=== PATIENT | female | born 1980 | race Caucasian/White ===

== ENCOUNTER → 2022-02-06 10:41 | Outpatient (CLI) | payer OTHER, SELFPAY ==
--- NOTE | 2022-02-06 | DI.MG.S_ITS ---
BILATERAL DIGITAL SCREENING MAMMOGRAM 3D/2D WITH CAD: 02/06/2022 CLINICAL: Baseline exam Routine screening. No prior exams were available for comparison. The tissue of both breasts is heterogeneously dense. This may lower the sensitivity of mammography. Current study was also evaluated with a Computer Aided Detection (CAD) system. There is possible architectural distortion in the right breast central to the nipple middle depth. No other significant masses, calcifications, or other findings are seen in either breast. IMPRESSION: INCOMPLETE: NEEDS ADDITIONAL IMAGING EVALUATION The possible architectural distortion in the right breast is indeterminate. Additional views with possible ultrasound are recommended. Based on the Tyrer Cuzick model (a risk assessment model) the patient's lifetime risk is 9.3% and her 10 year risk is 1.4%. According to the ACR, ACS, and NCCN guidelines, an annual breast MRI exam along with mammogram is recommended if the patient's lifetime risk is 20% or greater. This exam was interpreted at Station ID: [id number]. NOTE: For mammograms, a report in lay terms will be sent to the patient. Approximately 15% of breast malignancies will not be visualized mammographically. In the management of a palpable breast mass, a negative mammogram must not discourage biopsy of a clinically suspicious lesion. Electronically Signed By: Elenita still/tanner:02/06/2022 13:25:30 letter sent: Followup Recommended ACR BI-RADS Category 0: Incomplete 3340F
--- NOTE | 2022-02-06 10:43 | DI.US.S_ITS ---
PROCEDURE: US PELVIC COMPLETE INDICATIONS: Breakthrough bleeding on oral contraceptives TECHNIQUE: Real-time scanning was performed of the pelvic organs, with image documentation. Additional endovaginal scanning was necessary due to incomplete visualization of the adnexal and endometrial structures by transabdominal scanning. COMPARISON: None. FINDINGS: The uterine body measures 5.0 x 5.1 x 10.4 cm. The endometrium has a normal trilaminar appearance measuring 5 mm in combined thickness. No discrete uterine mass. Diffusely heterogenous uterine echotexture. Left ovary not visualized. Right ovary normal measuring 1.0 x 1.5 x 1.9 cm. Right ovarian or adnexal mass. Normal Doppler blood flow in the right ovary. IMPRESSION: Mildly enlarged uterus with diffusely heterogenous uterine echotexture may represent adenomyosis. No discrete uterine mass. We strive to produce accurate, complete, and clear reports of imaging services. To assist us in improving patient care, this report was composed using standard report templates and voice recognition software. Therefore, it may contain abnormal punctuation, insertions and/or omissions. Occasional wrong-word or sound-alike substitutions may occur. Though we review the report and make efforts to correct it, we do recommend that the report be read carefully in proper context to recognize any text inaccuracies. Dictated by: Oliverio Strange M.D. on 02/06/2022 at 13:33 Approved by: Oliverio Strange M.D. on 02/06/2022 at 13:36
== END ==
PROVIDERS: Referring Provider Obstetrics & Gynecology; Visit Provider Obstetrics & Gynecology
DX: N92.1 Excessive and frequent menstruation with irregular cycle (principal); Z12.31 Encounter for screening mammogram for malignant neoplasm of breast; N85.2 Hypertrophy of uterus
CPT/HCPCS: 76830; 76856; 77063; 77067

== ENCOUNTER → 2022-04-03 09:38 | Outpatient (CLI) | payer OTHER, SELFPAY ==
--- NOTE | 2022-04-03 09:40 | DI.MG.S_ITS ---
UNILATERAL RIGHT DIGITAL DIAGNOSTIC MAMMOGRAM 3D/2D: 04/03/2022 CLINICAL: Additional evaluation requested from prior study. Comparison is made to exam dated: 02/06/2022 mammogram - [facility]. The right breast is heterogeneously dense, which may obscure small masses (category c / 51-75% glandular tissue). No significant masses, calcifications, or other findings are seen in the breast. IMPRESSION: INCOMPLETE: NEEDS ADDITIONAL IMAGING EVALUATION There is no abnormality seen in the right breast to correspond with the mammography finding which is likely normal fibroglandular tissue. Ultrasound report to follow. Based on the Tyrer Cuzick model (a risk assessment model) the patient's lifetime risk is 9.3% and her 10 year risk is 1.4%. According to the ACR, ACS, and NCCN guidelines, an annual breast MRI exam along with mammogram is recommended if the patient's lifetime risk is 20% or greater. This exam was interpreted at Station ID: [id number]. NOTE: For mammograms, a report in lay terms will be sent to the patient. Approximately 15% of breast malignancies will not be visualized mammographically. In the management of a palpable breast mass, a negative mammogram must not discourage biopsy of a clinically suspicious lesion. Electronically Signed By: Juwan Obando M.D. lc/:04/03/2022 11:04:50 ACR BI-RADS Category 0: Incomplete 3340F
--- NOTE | 2022-04-03 09:40 | DI.US.S_ITS ---
ULTRASOUND OF RIGHT BREAST: 04/03/2022 CLINICAL: Patient returns today to evaluate a focal asymmetry in the right breast. Comparison is made to exams dated: 04/03/2022 mammogram and 02/06/2022 mammogram - [facility]. Color flow and real-time ultrasound of the right breast were performed. White scale images of the real-time examination were reviewed. No significant abnormalities were seen sonographically in the right breast. IMPRESSION: NEGATIVE There is no sonographic evidence of malignancy. There is no abnormality seen in the right breast to correspond with the mammography finding at 8 o'clock which is consistent with normal fibroglandular tissue. A 1 year screening mammogram is recommended. This exam was interpreted at Station ID: [id number]. Electronically Signed By: Juwan Obando M.D. lc/:04/03/2022 11:15:40 letter sent: Normal Exam Ultrasound BI-RADS: 1 Negative
== END ==
PROVIDERS: PCP Obstetrics & Gynecology; Referring Provider Obstetrics & Gynecology; Visit Provider Obstetrics & Gynecology
DX: R92.8 Other abnormal and inconclusive findings on diagnostic imaging of breast (principal)
CPT/HCPCS: 76642; 77065; G0279

== ENCOUNTER → 2022-06-10 14:37 | Outpatient (CLI) | payer OTHER, SELFPAY ==
[2022-06-10 16:54] LABS: COVID19 -Nasal RAPID Negative (Negative)
== END ==
PROVIDERS: Visit Provider Obstetrics & Gynecology
DX: Z01.812 Encounter for preprocedural laboratory examination (principal); Z20.822 Contact with and (suspected) exposure to COVID-19
CPT/HCPCS: 87635

== ENCOUNTER 2022-06-11 12:22 | Day surgery (SDC) | payer OTHER, SELFPAY ==
[2022-06-08 14:47] VITALS: BMI 32.8
[2022-06-11] VITALS (16 sets, daily range): BP systolic 93–139; BP diastolic 49–83; PULSE 61–89; RESP 8–18; TEMP 35.8–37.2; O2SAT 98–100; BMI 32.8
--- NOTE | 2022-06-11 | PATH_ITS ---
[facility] Accession Number: [id number] . 01 Material submitted: . uterus - UTERUS AND BILATERAL FALLOPIAN TUBES . 01 Diagnosis: Uterus and Bilateral Fallopian Tubes; Hysterectomy (With Preserved Cervix and Ovaries): Endometrium: Late proliferative/early secretory phase endometrium with breakdown changes. Negative for atypia, hyyperplasia and malignancy. Myometrium: No significant diagnostic abnormalities. Negative for adenoyosis (on dealer compliance representative sections) and leiomyomas (on dealer compliance representative sections and gross description). Benign bilateral fallopian tubes and paratubal cyst. Negative for atypia and malignancy. [facility] 06/16/2022 1519 Local . 01 Electronically signed: . Suman Sibley MD, Pathologist NPI- [id number] . 01 Gross description: . The specimen is received in formalin, labeled with the patient's name, , and uterus and bilateral fallopian tubes, and consists of a fragmented uterus (86 g, 9.4 x 9.3 x 5.2 cm in aggregate) and four detached, unoriented tubular structures consistent with fimbriated fallopian tube (3.8 x 1.3 cm, 3.8 x 0.7 cm, 3.6 x 0.7 cm, and 2.5 x 1.2 cm, respectively), with no cervix or additional adnexa identified. The serosa is shea and wrinkled with no evidence of adhesion or hemorrhage. The presumed endometrium is shea and velvety and averages 0.2 cm thick with no lesions identified. The myometrium is shea, firm, and trabecular with no nodules or lesions identified. Maximum thickness cannot be determined. The four tubular fragments are arbitrarily designated 1-4 from longest to shortest. Tube #1 has disrupted wrinkled serosa with no cystic structures identified and a fimbriated end. Sectioning reveals a disrupted irregular stellate lumen. Tube #2 has possible fragments of fimbriae and a shea wrinkled serosa with a cystic structure identified measuring up to 0.2 cm in greatest dimension, filled with clear serous fluid. Sectioning reveals an unremarkable stellate lumen. Tube #3 has possible fragments of fimbriae and shea smooth serosa with no cystic structures identified. Sectioning reveals an unremarkable stellate lumen. Tube #4 has fimbriae and shea smooth serosa with no cystic structures identified. Sectioning reveals an unremarkable stellate lumen. No lesions are identified. Dinkey Press Operator sections are submitted as follows: A1-A2: Dinkey Press Operator endometrium. A3-A4: Dinkey Press Operator serosa. A5: Dinkey Press Operator tube #1. A6: Dinkey Press Operator tube #2. A7: Dinkey Press Operator tube #3. A8: Dinkey Press Operator tube #4. ([id number]) /R 06/13/2022 [facility] Local . 01 Pathologist provided ICD-10: N92.0, R10.2 . 01 CPT . 742464 Specimen Comment: A courtesy copy of this report has been sent to [phone] Performed at: 01 [facility] [address] [place] [address], [place], [place] [id number] MD Rogelio Corona MD Phone: [phone]
[2022-06-11] MEDS: LACTATED RINGERS 1,000 ML 42 ML IV ×2 (12:34→16:35)
[2022-06-11] MEDS: SCOPOLAMINE 1 PATCH TOP (12:37)
--- NOTE | 2022-06-11 13:17 | SUR.OPER ---
Lithotomy on padded OR bed. Malo Pad Positioner under torso. Head on pillow, arms padded and tucked at sides. Legs secured in padded yellow fins stirrups.
--- NOTE | 2022-06-11 14:09 | PM.PREOP ---
Pre-operative Note COVID-19 COVID-19 status: Negative Result date/Date tested (Pos, Neg/Pending): 06/10/22 Criteria for continued procedure: Non-surgical alternatives not available or appropriate per current SOC Interval Note History & Physical reviewed/Exam performed by Physician: Yes Changes to H&P: No
[2022-06-11] MEDS: CEFAZOLIN 2 GM/100 ML PREMIX 100 ML IV (14:27)
[2022-06-11] MEDS: ACETAMINOPHEN IV 1,000 MG/100 ML VIAL 400 MG IV (14:38)
[2022-06-11] MEDS: BUPIVACAINE 0.5% W/ EPI (PF) 30 ML VIAL INJ (15:12)
[2022-06-11] MEDS: ROPIVACAINE 0.2% PF 2 MG/ML 10ML AMP 20 ML INJ (17:03)
[2022-06-11] MEDS: OXYCODONE IR 5 MG TABLET PO ×2 (17:49→18:19)
[2022-06-11] MEDS: KETOROLAC 30 MG/ML VIAL IV ×2 (17:50→23:40)
[2022-06-11] MEDS: LORazepam 2 MG/ML INJ 0.25 MG IV (17:50)
--- NOTE | 2022-06-11 18:06 | PM.GYNOP.1 ---
Operative Date/Time/Diagnoses Date of procedure: 06/11/22 Time of procedure: 14:50 Pre-op diagnosis: Menorrhagia with regular cycle Post endometrial ablation syndrome Intermenstrual bleeding Post-op diagnosis: other (Same as above, extensive abdominopelvic adhesions) Procedure & Clinicians Procedure: Procedures Operation Date: 06/11/22 13:30 Actual Procedure Side Surgeon p Laparoscopic Supracervical Hysterectomy with bilateral salpingectomy Lysis of adhesions Bilateral Isaac Davis MD Indications: Zoë is a 42-year-old A1, LMP 05/12/2022 whose menses are regular but moderately heavy with passage of clots and moderate cramping.? She apparently had a D&C at [facility] more than 5 years ago but no records are available for review.? In addition she has gradually developed increasingly severe mood swings occurring the week prior to her menses for which she has been prescribed lamotrigine and Seroquel by her psychiatrist.? Patient's has had a vasectomy.? She has used oral contraceptives in the past and did well with them.? She is a nonsmoker who quit smoking just last year.? Warehouse And Receiving Supervisor review of systems is notable only for deep dyspareunia which is positional and does not seem to be aggravated or exacerbated by menses for pre-menses.? These symptoms have been present since delivery or her second child by .? The patient was initiated on a trial of continuous oral contraceptives which unfortunately did not improve her symptoms in any respect and the patient wishes to pursue other options for treatment.? After extensive discussion regarding options, the patient has opted to proceed with a total laparoscopic hysterectomy with bilateral salpingectomy and she presents for her scheduled surgery. Patient also counseled that she may need to have a laparoscopic supra-cervical hysterectomy if scarring from her previous caesareans or other technical issues make TLH impossible. Surgeon: Isaac Davis Plant Culture Manager: Ainsley Middleton Anesthesia Type: General Operative Notes Findings: Extensive omental adhesions involving the infra-umbilical anterior abdominal wall extending from immediately caudad from the umbilicus all the way down to the anterior cul-de-sac. These were lysed during the course of the procedure. The uterus is upper limits of normal size and globoid in shape. The uterus itself is boggy in consistency. The left fallopian tube is densely adherent to the lateral sidewall on the left. The right fallopian tube appears normal. Both ovaries also appeared normal with the left involved with some filmy adhesions involving the sigmoid colon. The anterior cul-de-sac is largely obliterated with scar tissue particularly on the left side of cul-de-sac. The posterior cul-de-sac is unremarkable. The upper abdomen is normal to laparoscopic visualization. Closure Type: primary Specimen(s): left tube, right tube and uterus Applied: catheter Estimated blood loss (mL): 150 Blood products transfused: none Procedure in detail: With the patient under satisfactory general anesthesia in the modified dorsal lithotomy position, the perineum, vagina, and abdomen were prepped and draped in the usual manner for TLH. A pre-surgical safety time-out was then taken in accordance with [facility] OR protocols. A bivalve speculum was then inserted in the vagina and the anterior lip of the cervix grasped with single-tooth tenaculum. A VC are uterine manipulator with a medium cup was then placed after dilation of the endocervical canal. Hernández catheter was also inserted in bladder. The umbilicus was then infiltrated with 0.5% Marcaine with epinephrine and a vertical 1 cm incision was made of the inferior aspect of the umbilicus. A Veress needle was then used to insufflate the abdomen with carbon dioxide and a 5 mm trocar and sleeve was placed through the umbilical incision. Proper placement of the port inside the abdominal cavity was confirmed with the laparoscoped. A 2nd and 3rd 5 mm port were then placed in the left and right mid quadrants using a similar technique. Using a 3 puncture technique the abdomen and pelvis were visualized with the findings as noted above. A PowerSeal bipolar device was then used to coagulate and divide all the adhesions involving the omentum to the anterior abdominal wall. At the completion of the lysis process, all omental adhesions had been freed from the anterior abdominal wall. The left fallopian tube was then mobilized with a grasping forceps and using the PowerSeal bipolar device, the fimbria ovarica was then coagulated and divided with the dissection carried across the sidewall to the mesosalpinx and then to the cornua where the fallopian tube was amputated. The left fallopian tube was then passed through 1 of the 5 mm ports and submitted with the aggregate specimen the conclusion case. The PowerSeal bipolar device was then used to coagulate and divide the utero-ovarian ligament on the left. There was no visible round ligament on the left as it was obliterated by scar tissue and prior sections. The dissection was carried down the lateral aspect of the uterus on the left side with the PowerSeal bipolar device immediately adjacent to the lateral aspect of the uterus on that side. Once the level of the vesicouterine reflection had been reached, a bladder flap was attempted using the PowerSeal bipolar device and dense scar tissue was encountered. The uterine blood vessels on the left side were then secured with the PowerSeal bipolar device and attention was turned to the right side. The right fallopian tube was then grasped with the distal tube coagulated and divided to from the ovary on the right and the dissection was carried across the mesosalpinx with the PowerSeal bipolar device to the level of the cornua at which point the tube was amputated. The right tube was then passed through 1 of the 5 mm ports and submitted as part of the aggregate specimen completion procedure. The dissection on the right side was then carried down the lateral aspect of the uterus to the level of the uterovesical reflection and the bladder flap was initiated from the right side and clear space was created so as to be able to dissect over toward the midline and connect with the bladder flap incision started from the left side. Bladder could not be advanced are safely from cervical stump. The uterine vessels on the left were then coagulated and divided with the PowerSeal bipolar device and the uterine fundus was seen to kvng. Because of the inability to separate the bladder safely from the cervical stump, the decision was made to proceed with supracervical hysterectomy. The VCare uterine manipulator was removed. A Tammy loop was then introduced into the abdominal cavity and the corpus amputated at the level of the uppermost endocervical canal. The cervical stump was hemostatic and monopolar current was used to coagulate the endocervical canal and any raw edge of the cervical stump was visible. A 5 cm transverse incision was then made along the line of her old scar and through it, a 12 mm trocar and sleeve were placed. An Endo-Catch device was then used to retrieve the uterine corpus and it was brought out through the abdominal wall for morcellation using an Don retractor placed within the Endo-Catch bag. The mini lap fascia was then closed with 0 Vicryl in a running stitch and the abdomen was reinsufflated for inspection. There was no evidence of any bleeding in the pelvis and both ureters were seen to be freely peristalsing. At that point, 20 cc of ropivacaine was placed in the pelvis for additional analgesia. The pneumoperitoneum was then vented and the 4 incisions were closed with 4-0 Monocryl inverted interrupted sutures. Appropriate dressings were then applied and the patient was awakened from anesthesia. She was then transferred to the PACU for a period of observation and recovery after having tolerated the procedure well. Complications: none Post-operative Condition: stable Disposition: PACU Plan for aftercare: Routine postoperative care.
[2022-06-11] MEDS: LACTATED RINGERS 1,000 ML 100 ML IV (18:44)
--- NOTE | 2022-06-11 19:06 | PC.NURSE ---
Admit note: Patient admitted to room 220 from PACU. Awake, alert, and pleasantly cooperative. IVF and SCDs initiated on arrival. VSS and afebrile. 100% O2 sat on RA. Lower abdomen incision dressings x 4, CDI. Hernández catheter draining clear, yellow urine to gravity. No drainage to peripad. Oriented to room, environment, and plan of care. Spouse Shaq at bedside providing supportive care. Call light within reach.
[2022-06-11] MEDS: QUETIAPINE 100 MG TABLET PO (21:05)
[2022-06-12] MEDS: ACETAMINOPHEN 325 MG TABLET 650 MG PO ×2 (03:33→10:19)
[2022-06-12 03:50] VITALS: BP 122/79; PULSE 74; RESP 18; TEMP 36.8; O2SAT 98
[2022-06-12] MEDS: LACTATED RINGERS 1,000 ML 100 ML IV (04:51)
[2022-06-12 05:22] LABS: Add Manual Diff / Slide Review NO; Basophils Absolute Auto 0 /uL (0-100); Basophils Percent Auto 0.1 % (0-2); Eosinophils Absolute Auto 0 /uL (0-450); Hemoglobin 11.5 g/dL (12.0-16.0); Lymphocytes Absolute Auto 700 /uL (1100-4500); Lymphocytes Percent Auto 6.4 % (25-40); Mean Corpuscular HGB Conc 34.8 % (30-36); Monocytes Absolute Auto 500 /uL (0-900); Monocytes Percent Auto 4.4 % (3-14); Neutrophils Absolute Auto 9300 /uL (1500-7000); Neutrophils Percent Auto 89.1 % (50-75); Platelet Count 224 X10^3/uL (150-400); Red Blood Cell Count 3.71 X10^6/uL (4.0-5.2); Red Cell Distribution Width 12.3 % (11.6-14.8); White Blood Cell Count 10.5 X10^3/uL (4.5-11.0)
[2022-06-12] MEDS: KETOROLAC 30 MG/ML VIAL IV ×2 (05:45→11:00)
[2022-06-12] MEDS: HYDROMORPHONE 4 MG TABLET PO (07:40)
[2022-06-12 07:50] VITALS: BP 125/72; PULSE 64; RESP 16; TEMP 36.4; O2SAT 99
--- NOTE | 2022-06-12 07:51 | PC.NURSE ---
Day shift: Post Hernández Pt has voided twice. Fist was unmeasured. Second void w/ 300mls and post void bladder scan shows 25mls at this time (0750).
--- NOTE | 2022-06-12 09:28 | P.DS_ITS ---
History of Present Illness History of Present Illness Date Patient Seen: 06/12/22 Time Patient Seen: 09:30 Chief complaint: Menorrhagia, Post-endometrial ablation syndrome Narrative: Zoë is a 42-year-old A1, LMP 05/12/2022 whose menses are regular but moderately heavy with passage of clots and moderate cramping.? She apparently had a D&C at [facility] more than 5 years ago but no records are available for review.? In addition she has gradually developed increasingly severe mood swings occurring the week prior to her menses for which she has been prescribed lamotrigine and Seroquel by her psychiatrist.? Patient's has had a vasectomy.? She has used oral contraceptives in the past and did well with them.? She is a nonsmoker who quit smoking just last year.? Rail Car Operator review of systems is notable only for deep dyspareunia which is positional and does not seem to be aggravated or exacerbated by menses for pre-menses.? These symptoms have been present since delivery or her second child by .? The patient was initiated on a trial of continuous oral contraceptives which unfortunately did not improve her symptoms in any respect and the patient wishes to pursue other options for treatment.? After extensive discussion regarding options, the patient has opted to proceed with a total laparoscopic hysterectomy with bilateral salpingectomy and she presents for her scheduled surgery.? Patient also counseled that she may need to have a laparoscopic supra-cervical hysterectomy if scarring from her previous caesareans or other technical issues make TLH impossible. Discharge Providers Provider Date of admission: 06/11/2022 Discharge Date: 06/12/22 Primary care physician: Tammi Schuster PA-C Discharge provider: Isaac Davis MD Summary Hospital Course Discharge Diagnosis: Menorrhagia with regular cycle Post endometrial ablation syndrome Intermenstrual bleeding Status post laparoscopic supracervical hysterectomy with bilateral salpingectomy Hospital Course: Zoë was admitted on the morning of 06/11/2022 and on the afternoon of 022 she went underwent a laparoscopic supracervical hysterectomy w/ bilateral salpingectomy instead of the originally planned total laparoscopic hysterectomy due to severe adhesions involving the bladder and the cervix. Details of the surgical procedure well summarized on my operative note of that date. Following her surgery the patient has done extremely well with prompt return of bowel and bladder function, she is remained afebrile and normotensive throughout her postoperative course, she is ambulating independently, tolerating regular diet, and her pain is well controlled with oral pain medications. She will be discharged at this time in an afebrile normotensive condition to home following instructions regarding precautionary symptoms, limitations of activity, medications, and plans for follow-up. Prescriptions at discharge will include Dilaudid 4 mg 1 p.o. Q 4-6 hours as needed pain dispense 20, and Cipro 500 mg p.o. b.i.d. x5 days for urinary tract prophylaxis following catheterization. Follow-up will be in 2 weeks or as needed. Status at Discharge Cognitive/behavioral status at discharge: oriented Functional status at discharge: independent ambulation Overall status at discharge: patient is progressing back to baseline Time Spent with Patient Time spent: Less than 30 minutes Exam Vital Signs (past 8 hours): - 06/12/22 03:50 06/12/22 07:50 Temperature 98.2 F 97.5 F L Pulse Rate 74 64 Respiratory Rate 18 16 Blood Pressure 122/79 125/72 Pulse Oximetry 98 99 Oxygen Flow Rate 0 0 Oxygen Delivery Method Room Air Oxygen Flow Rate 0 Const General: cooperative and comfortable Nutritional Appearance: average body habitus Orientation: alert and oriented x3 HENMT Head: normal to inspection, atraumatic and abrasion Ears: hearing grossly normal bilaterally Face and sinus: face symmetric Eyes General: appearance normal, both eyes and all related structures Conjunctivae: conjunctivae normal Sclera: sclerae normal EOM: EOM intact bilaterally Neck Neck: normal visual inspection Resp Effort & Inspection: normal respiratory effort and able to speak in complete sentences Auscultation: clear to auscultation bilaterally Cardio Rate: regular rate Rhythm: regular rhythm Heart Sounds: S1 normal, S2 normal and no murmurs GI Inspection: normal to inspection and incision (Surgical dressings clean and dry) Palpation: soft, no hepatosplenomegaly and tender (Mild, diffuse postsurgical tenderness) External Female Exam: other (No significant bleeding noted) Extrem General: no calf tenderness Psych Appearance: grossly normal Mental Status: mental status grossly normal Speech and Movement: speech and movement normal Mood: congruent mood Affect: normal affect Attitude: cooperative Thought Process: normal Thought Content: normal Judgment: judgment good Objective Labs Result Diagrams: 06/12/22 04:57 Labs: Laboratory Results - last 24 hr 06/12/22 04:57 WBC 10.5 RBC 3.71 L Hgb 11.5 L Hct 33.0 L MCV 89.0 MCH 31.0 MCHC 34.8 RDW 12.3 Plt Count 224 Neut % (Auto) 89.1 H Lymph % (Auto) 6.4 L [place] % (Auto) 4.4 Eos % (Auto) 0.0 L Baso % (Auto) 0.1 Neut # (Auto) 9300 H Lymph # (Auto) 700 L [place] # (Auto) 500 Eos # (Auto) 0 Baso # (Auto) 0 PFSH Medical History Acne (~2012) ADHD (~2020) Allergies Anemia (~1998) Anxiety (~1998) Depression (~1998) Heavy menstrual period (~2013) PTSD (post-traumatic stress disorder) (~2020) Restless leg syndrome (~2014) Surgical History Anesthesia Hematoma (~01/28/99) History of section (~01/28/99) History of dilatation and curettage (~06/2002) History of nasal septoplasty (~2003) Family History Father Stroke Mother Hypertension Hyperlipidemia Mental health problem Brother Mental health problem Sister Mental health problem Grandfather Diabetes mellitus Grandmother Hypertension Mental health problem Stroke Grandfather Cancer History of heart disease Grandmother Diabetes mellitus Family/Other Hypertension Social History household members: spouse and children Smoking Status: Former smoker alcohol intake: current Discharge Assessment & Plan Assessment and Plan Assessment: Status post laparoscopic supracervical hysterectomy with bilateral salpingectomy Plan of Treatment: Routine postoperative care with follow-up plan for 2 weeks postop Discharge Plan Discharge Plan Patient Disposition: Home Provider Discharge Comment: Please review the written instructions you received when you were discharged from the hospital. Your follow-up appointment will be scheduled for 2 weeks after your surgery and I look forward to seeing you then. If in the meanwhile however you have any concerns, issues, or questions, please contact me through the office phone at [phone] or via the patient portal. Discharge orders & Medications Discharge Orders: Discharge (Order); Ordered 06/12/22 Ordered By: Isaac Davis Prescriptions: New hydromorphone 4 mg Tablet 4 mg PO Q6H PRN (Reason: Pain, Severe (7-10)) 5 Days Qty: 20 0RF ciprofloxacin HCl [Cipro] 500 mg tablet 500 mg PO BID 5 Days Qty: 10 0RF Continued cetirizine 10 MG tablet 10 mg PO QDAYP Qty: 0 quetiapine 100 mg tablet 100 mg PO BEDTIME lamotrigine 200 mg tablet 100 mg PO DAILY Discontinued alprazolam [Xanax] 1 mg tablet 1 mg PO ONCE Qty: 1 0RF Rx Instructions: Take w/ sip of H20 AM 06/11/2022 Follow up/Referrals: Tammi Schuster, PA-C [Primary Care Provider] - Isaac Davis MD [Physician] - Diet/Activity/Treatments Diet: Diet as Tolerated Activity: As tolerated Other treatments: [id number] Tylenol and/or ibuprofen may be used for additional pain relief. Skin/Wound/Dressing Care Report to your healthcare provider any signs of infection, such as:: chills, fever, increased pain, unusual drainage and unusual redness Dressing: Dressings may be removed on the morning 06/13/2022 Visit Report/Discharge Packet Instructions: DI for Hysterectomy, DI for Laparoscopy, DI for Prescription Opioid Use Stand Alone Forms: Surgery Discharge Discharge Data Primary Care Provider: Tammi Schuster Attending Provider: Isaac Davis
--- NOTE | 2022-06-12 11:12 | CM.DANOTE ---
DCP Assessment: Payor confirmed: Ad PCP confirmed: Tammi Schuster MD Pt is a 42 y.o. F who is here for a planned hysterectomy with Dr. Davis. Pt was brought up to the floor for further management and evaluation of procedure. DCP met with pt this morning to discuss discharge needs. Pt sitting up in chair talking with family on the phone. DCP introduced self and role. Pt lives with her spouse and children in [place]. Pt is independent at baseline and still drives POV. Pt spouse, Shaq, will pick her up from the hospital upon discharge. Pt has no needs at this time. Dr. Davis discharging pt today. White board updated and instructed to call. Pt thankful for discussion. P: Pt to be discharged home today via spouse POV. No needs. Sherrie Lna RN/DEANNE Discharge Planning/Care Management CM Discharge Assessment Start: 06/12/22 07:52 Freq: Status: Active Protocol: Document 06/12/22 08:20 ELIZABETH (Rec: 06/12/22 08:20 AJ [id number]) Discharge Planning Assessment Assigned Election Clerk Sherrie Lan RN/DEANNE Advance Directives? No History Provided By Patient Prior Living Arrangements House Household Members spouse,children Type of transporation used prior to Drives own vehicle admit Independent with ADL's Yes Is patient alert and oriented? Yes Discharge Plan Home Referrals Initiated None needed Whiteboard Updated in Patient Room with Yes name and ext. # of Election Clerk Review Status In Process Please Provide Date Initial DC 06/12/22 Assessment Was Performed Next Review Type Continued Stay Review Pre-Anesthesia Assessment Start: 06/08/22 14:47 Freq: Status: Active Protocol: Document 06/08/22 14:47 CAB (Rec: 06/08/22 14:56 CAB [id number]) Pre-Anesthesia Assessment Patient Information Reviewed Via Chart Review Comment COVID screen @ 06/10/22 Seen Specialist in Last 12 Months Yes Specialist Seen Jumpbasting Facing Baster Primary Language Croatian Acid Adjuster Required No Height 167.64 cm Weight 92.079 kg Body Mass Index (BMI) 32.8 Hx Anesthesia Reactions No Anesthesia Review Requested No Barback No alcohol intake current alcohol intake frequency 0-2 drinks per day Smoking Status Former smoker History of Falling (Recent or History of No ) Patient is completely paralyzed or No completely immobile Mental Status Oriented to own ability Is patient on oxygen? No Hx Sleep Apnea No Currently Taking a Beta Raoul No Anti-Coagulant Therapy No Has a Microstrategy Reports Developer No Cardiac Testing No Hx Pacemaker/ICD No Pacemaker Rep Required? No Cardiac Clearance Received Not Applicable Urinary Catheter Present No Hx Urinary Self Catheterization No Diabetes No Patient No Lactating No Marital Status Lives With spouse,children Patient Discharge Plan Description Return Home
[2022-06-12 11:50] VITALS: BP 126/63; PULSE 73; RESP 16; TEMP 36.7; O2SAT 100
--- NOTE | 2022-06-12 13:17 | PC.NURSE ---
Day shift: Paperwork signed and all questions answered. Spouse in room for d/c teachings. Left unit via WC at approx 1310. JUDO INSTRUCTOR Zhao took her to car that her is driving. Dressing remain CDI. Pain was well controlled per MAR. CMS intact.
== END 2022-06-12 13:19 | disposition home or self-care (01) ==
LOC: OR 12:23 → AC 12:24
PROVIDERS: PCP Physician Assistant; Referring Provider Obstetrics & Gynecology; Visit Provider Obstetrics & Gynecology
PROC: 0UT94ZZ Resection of Uterus, Percutaneous Endoscopic Approach (ICD-10-PCS; CPT 58542; principal; 2022-06-11 13:30)
DX: N92.0 Excessive and frequent menstruation with regular cycle (principal); N99.85 Post endometrial ablation syndrome; N73.6 Female pelvic peritoneal adhesions (postinfective); N83.8 Other noninflammatory disorders of ovary, fallopian tube and broad ligament; D25.9 Leiomyoma of uterus, unspecified; N80.03 Adenomyosis of the uterus
CPT/HCPCS: 58542; 36415; 85025; J0131; J0690; J1100; J1170; J1885; J2060; J2250; J2405; J2704; J2795; J3010

== ENCOUNTER → 2023-05-22 11:36 | Outpatient (CLI) | payer OTHER, SELFPAY ==
[2022-06-25 10:07] VITALS: BMI 32.8
--- NOTE | 2023-05-22 11:37 | DI.MG.S_ITS ---
BILATERAL DIGITAL SCREENING MAMMOGRAM 3D/2D WITH CAD: 05/22/2023 CLINICAL: Routine screening. Comparison is made to exams dated: 04/03/2022 mammogram and 02/06/2022 mammogram - [facility]. Both breasts are heterogeneously dense, which may obscure small masses (category c / 51-75% glandular tissue). Current study was also evaluated with a Computer Aided Detection (CAD) system. No significant masses, calcifications, or other findings are seen in either breast. There has been no significant interval change. IMPRESSION: NEGATIVE There is no mammographic evidence of malignancy. A 1 year screening mammogram is recommended. Based on the Tyrer Cuzick model (a risk assessment model) the patient's lifetime risk is 9.3% and her 10 year risk is 1.6%. According to the ACR, ACS, and NCCN guidelines, an annual breast MRI exam along with mammogram is recommended if the patient's lifetime risk is 20% or greater. This exam was interpreted at Station ID: [id number]. NOTE: For mammograms, a report in lay terms will be sent to the patient. Approximately 15% of breast malignancies will not be visualized mammographically. In the management of a palpable breast mass, a negative mammogram must not discourage biopsy of a clinically suspicious lesion. Electronically Signed By: Nithin escobar/tanner:05/22/2023 12:55:08 letter sent: Normal Exam ACR BI-RADS Category 1: Negative [id number]
== END ==
PROVIDERS: PCP Physician Assistant; Referring Provider Physician Assistant; Visit Provider Physician Assistant
DX: Z12.31 Encounter for screening mammogram for malignant neoplasm of breast (principal)
CPT/HCPCS: 77063; 77067

== ENCOUNTER → 2024-09-02 11:36 | Outpatient (CLI) | payer OTHER, SELFPAY ==
[2022-06-25 10:07] VITALS: BMI 32.8
--- NOTE | 2024-09-02 | DI.MG.S_ITS ---
BILATERAL DIGITAL SCREENING MAMMOGRAM 3D/2D WITH CAD: 09/02/2024 CLINICAL: Routine screening. Comparison is made to exams dated: 04/03/2022 ultrasound, 05/22/2023 mammogram, and 04/03/2022 mammogram - [facility]. The breasts are heterogeneously dense, which may obscure small masses (category c / 51-75% glandular tissue). Current study was also evaluated with a Computer Aided Detection (CAD) system. There is irregular architectural distortion in the right breast at 8 o'clock posterior depth. This is in close vicinity to previously evaluated possible architectural distortion on 2021 exams but appears more prominent on current exam. No other significant masses, calcifications, or other findings are seen in either breast. IMPRESSION: INCOMPLETE: NEED ADDITIONAL IMAGING EVALUATION The irregular architectural distortion in the right breast is indeterminate. Additional views with possible ultrasound are recommended. Based on the Tyrer Cuzick model (a risk assessment model) the patient's lifetime risk is 9.3% and her 10 year risk is 1.7%. According to the ACR, ACS, and NCCN guidelines, an annual breast MRI exam along with mammogram is recommended if the patient's lifetime risk is 20% or greater. This exam was interpreted at Station ID: [id number]. NOTE: For mammograms, a report in lay terms will be sent to the patient. Approximately 15% of breast malignancies will not be visualized mammographically. In the management of a palpable breast mass, a negative mammogram must not discourage biopsy of a clinically suspicious lesion. Electronically Signed By: Nithin Smith M.D. at/:09/04/2024 16:20:41 letter sent: Additional Imaging Needed ACR BI-RADS Category 0: Incomplete: Need Additional Imaging Evaluation
== END ==
PROVIDERS: PCP Physician Assistant; Referring Provider Physician Assistant; Visit Provider Physician Assistant
DX: Z12.31 Encounter for screening mammogram for malignant neoplasm of breast (principal); R92.30 Dense breasts, unspecified
CPT/HCPCS: 77063; 77067

== ENCOUNTER → 2024-10-23 10:20 | Outpatient (CLI) | payer OTHER, SELFPAY ==
[2022-06-25 10:07] VITALS: BMI 32.8
--- NOTE | 2024-10-23 10:22 | DI.US.S_ITS ---
MM diagnostic mammo unilat RT, US breast RT limited: 10/23/2024 BI-RADS: 4B CLINICAL: 44-year old female for right diagnostic mammogram and right diagnostic breast ultrasound that is a recall from screening, bilateral, digital, tomosynthesis, w/mammo cad on 09/02/2024. [facility] lifetime risk of 5.5%. No personal or first-degree family history of breast cancer. PRIOR EXAMS 09/02/2024, 05/22/2023, 04/03/2022, 02/06/2022. MAMMOGRAPHY TECHNIQUE: 2D and 3D (tomosynthesis) digital mammographic views obtained, with additional images as needed for full coverage. Current study was also evaluated with a Computer Aided Detection (CAD) system. ULTRASOUND TECHNIQUE TARGETED Right Breast Ultrasound: Real-time ultrasound exam was performed focused to area of clinical and/or imaging concern. DENSITY Right: B. There are scattered areas of fibroglandular density. MAMMOGRAPHY FINDINGS Right (finding-1): Lower Outer at 8:00, Middle depth, measuring 0.7 cm: Correlating with findings on screening mammogram there is an area of architectural distortion present. ULTRASOUND FINDINGS Right (finding-1): Lower Outer at 8:00, 6 cm from nipple: No suspicious sonographic finding present. IMPRESSION: Right (Arch Distortion): Lower Outer at 8:00, Middle depth, measuring 0.7 cm * Moderate Suspicion of Malignancy. RECOMMENDATIONS Right * Stereotactic-guided biopsy for further evaluation. COMMENTS: Findings and recommendations were conveyed to the patient by Dr. Vang during today's evaluation prior to the patient leaving the facility. OVERALL ASSESSMENT CATEGORY BI-RADS-4: Suspicious. ELECTRONICALLY SIGNED: Hina Ruiz M.D. on 10/23/2024 at 12:08:42 PM PT Interpreting Station ID: [id number]
== END ==
PROVIDERS: PCP Family Medicine; Referring Provider Physician Assistant; Visit Provider Physician Assistant
DX: R92.2 Inconclusive mammogram (principal)
CPT/HCPCS: 76642; 77065; G0279

== ENCOUNTER → 2024-11-15 14:35 | Outpatient (CLI) | payer OTHER, SELFPAY ==
[2022-06-25 10:07] VITALS: BMI 32.8
--- NOTE | 2024-11-15 14:38 | DI.ECHO.S_ITS ---
[facility]---------+ [facility] : : [address] : : [place] : : [id number] : : Phone: [phone] Echocardiogram Report + + :Name: ALEXANDRA INGRAM Study Date: 11/15/2024 Height: 66 in : :Hospital ReadingLocation: Weight: 245 lb : : Gender: Female BSA: 2.2 m2 : :: 1980 Age: 44 yrs BP: 151/96 mmHg: :Reason For Study: LOWER EXTREMITY EDEMA : :Ordering Physician: MARK, : :TIFFANIE Ac Performed By: Oliverio Back : :Referring: TIFFANIE FLORES : + + Interpretation Summary The ejection fraction is estimated to be 60-65%. There is no significant valvular heart disease. Procedure: A two-dimensional transthoracic echocardiogram with color flow and Doppler was performed. The study quality was technically adequate. There is no prior echocardiogram noted for this patient. The patient was in normal sinus rhythm during the exam. Left Ventricle: The left ventricle is normal in size. Left ventricular wall thickness is mildly increased. There is no ventricular septal defect visualized. The ejection fraction is estimated to be 60-65%. Left ventricular wall motion is normal. Diastolic parameters suggest probable normal left ventricular diastolic function and normal filling pressures. Right Ventricle: The right ventricle is normal in size and function. Atria: The left atrial size is normal. Right atrial size is normal. There is no Doppler evidence for an interatrial shunt. Mitral Valve: The mitral valve leaflets appear normal. There is no evidence of stenosis, fluttering, or prolapse. There is no mitral regurgitation noted. Aortic Valve: The aortic valve is grossly normal. No aortic regurgitation is present. Tricuspid Valve: The tricuspid valve is not well visualized. No tricuspid regurgitation. Pulmonic Valve: The pulmonic valve is not well visualized. There is trace pulmonic regurgitation. Great Vessels: The aortic root is normal size. The dimensions of the ascending aorta are normal. The pulmonary artery is normal size. The IVC is of normal diameter and collapses greater than 50% with a sniff. This suggests a low right atrial pressure of 3 mm Hg. Pericardium/ Pleura There is no pericardial effusion. MMode/2D Measurements & Calculations LVIDd: 4.8 cm LVOT diam: 2.1 cm LVIDs: 3.8 cm Ao root diam: 3.3 cm FS: 19.8 % asc Aorta Diam: 3.2 cm EPSS: 0.75 cm Ao Arch Diam (Prox Trans): 2.1 cm IVSd: 1.3 cm LVPWd: 1.2 cm LV covarrubias. diameter/BSA (cm/m^2): 2.2 LV sys. diameter/BSA (cm/m^2): 1.7 LA A2 area: 17.1 cm2 RA long axis: 3.3 cm LA A4 area: 18.5 cm2 RA area: 6.9 cm2 LA length (vol): 5.6 cm RA vol: 12.5 ml LA vol: 48.2 ml RA : 5.7 ml/m2 LA vol index: 22.1 ml/m2 IVC diam: 1.0 cm RVD1 (basal): 3.7 cm RVD2 (mid): 2.7 cm TAPSE: 2.4 cm Doppler Measurements & Calculations Ao V2 max: 140.6 cm/sec LVOT Max Pj: 101.7 cm/sec Ao V2 mean: 102.7 cm/sec LV V1 max P.1 mmHg Ao max P.9 mmHg LV V1 VTI: 20.3 cm Ao mean P.6 mmHg MIKHAIL(I,D): 2.8 cm2 Ao V2 VTI: 24.6 cm MIKHAIL(V,D): 2.4 cm2 sev ratio: 0.82 MIKHAIL indexed to BSA (cm^2/m^2): 1.3 MV E max pj: 66.0 cm/sec PA V2 max: 88.2 cm/sec MV A max pj: 61.7 cm/sec PA V2 mean: 60.8 cm/sec MV E/A: 1.1 PA mean P.7 mmHg Med Peak E' Pj: 7.0 cm/sec PA pr(Accel): 39.6 mmHg E/E' med: 9.4 Lat Peak E' Pj: 9.1 cm/sec E/E' lat: 7.3 E/e' average: 8.3 MV dec time: 0.21 sec SV(LVOT): 68.6 ml Reading Physician:09:06 AM
== END ==
PROVIDERS: PCP Family Medicine; Referring Provider Family Medicine; Visit Provider Family Medicine
DX: R60.0 Localized edema (principal)
CPT/HCPCS: 93306

== ENCOUNTER → 2024-11-18 11:45 | Outpatient (CLI) | payer OTHER, SELFPAY ==
[2022-06-25 10:07] VITALS: BMI 32.8
[2024-11-18 12:30] LABS: Add Manual Diff / Slide Review NO; Basophils Absolute Auto 0 /uL (0-100); Basophils Percent Auto 0.5 % (0-2); Eosinophils Absolute Auto 100 /uL (0-450); Eosinophils Percent Auto 0.9 % (2-4); Hematocrit 41.7 % (36-46); Hemoglobin 14.5 g/dL (12.0-16.0); Lymphocytes Absolute Auto 1900 /uL (1100-4500); Lymphocytes Percent Auto 26.5 % (25-40); Mean Corpuscular HGB Conc 34.7 % (30-36); Mean Corpuscular Hemoglobin 30.8 PG (26-34); Mean Corpuscular Volume 88.7 fL (80-100); Monocytes Absolute Auto 400 /uL (0-900); Monocytes Percent Auto 5.6 % (3-14); Neutrophils Absolute Auto 4700 /uL (1500-7000); Neutrophils Percent Auto 66.5 % (50-75); Platelet Count 290 X10^3/uL (150-400); Red Cell Distribution Width 12.1 % (11.6-14.8); White Blood Cell Count 7.1 X10^3/uL (4.5-11.0)
[2024-11-18 12:39] LABS: Hemoglobin A1C% w Est Avg Glu 4.9 % (4.0-6.0)
[2024-11-18 12:49] LABS: Alanine Aminotransferase 33 IU/L (<35); Albumin 4.8 g/dL (3.5-5.0); Albumin Globulin Ratio 1.8 (1.0-2.8); Alkaline Phosphatase 92 U/L (38-126); Aspartate Aminotransferase 38 IU/L (14-36); BUN Creatinine Ratio 22.7 (6-22); Bilirubin Total 0.7 mg/dL (0.2-1.3); Blood Urea Nitrogen 17 mg/dL (7-17); Calcium 10.3 mg/dL (8.4-10.2); Carbon Dioxide 26 mmol/L (22-32); Chloride 100 mmol/L (98-107); Cholesterol 257 mg/dL (140-199); Estimated Glomerular Filt Rate > 60 mL/min (>60); Globulin 2.6 g/dL (1.7-4.1); Glucose 111 mg/dL (70-100); HDL Cholesterol 91 mg/dL (40-60); HEMOLYSIS < 15 (0-50); LDL Cholesterol Calculated 116 mg/dL (<100); Potassium 4.3 mmol/L (3.4-5.1); Sodium 136 mmol/L (137-145); Total Protein 7.4 g/dL (6.3-8.2); Triglycerides 249 mg/dL (35-150)
[2024-11-18 13:19] LABS: TSH w/ Reflex to FT4 1.01 uIU/mL (0.47-4.68)
[2024-11-18 16:15] LABS: Follicle Stimulating Hormone 10.8 mIU/mL; Progesterone, Total 0.52 ng/mL
== END ==
PROVIDERS: PCP Family Medicine; Referring Provider Family Medicine; Visit Provider Family Medicine
DX: R60.0 Localized edema (principal); Z13.6 Encounter for screening for cardiovascular disorders; N92.4 Excessive bleeding in the premenopausal period
CPT/HCPCS: 36415; 80053; 80061; 82672; 83001; 83036; 84144; 84443; 85025

== ENCOUNTER 2024-12-13 09:27 | Day surgery (SDC) | payer OTHER, SELFPAY ==
[2022-06-25 10:07] VITALS: BMI 32.8
[2024-11-23 12:32] VITALS: BMI 38.7
[2024-12-13] MEDS: LACTATED RINGERS 1,000 ML 42 ML IV (09:58)
[2024-12-13 09:59] VITALS: BP 142/81; PULSE 85; RESP 16; TEMP 36.4; O2SAT 100
--- NOTE | 2024-12-13 10:22 | P.HP_ITS ---
History of Present Illness History of Present Illness Date Patient Seen: 12/13/24 Chief complaint: [facility] Medical History (Updated 11/23/24 @ 12:33 by Violet Noel, RN) HTN (hypertension) Acne (~2012) Allergies PTSD (post-traumatic stress disorder) (~2020) Depression (~1998) Anxiety (~1998) Restless leg syndrome (~2014) ADHD (~2020) Anemia (~1998) Heavy menstrual period (~2013) Surgical History (Updated 11/23/24 @ 12:31 by Violet Noel RN) S/P laparoscopic supracervical hysterectomy (06/11/22) Anesthesia History of nasal septoplasty (~2003) History of dilatation and curettage (~06/2002) History of section (~01/28/99) Hematoma (~01/28/99) Family History Father Stroke Mother Hypertension Hyperlipidemia Mental health problem Brother Mental health problem Sister Mental health problem Grandfather Diabetes mellitus Grandmother Hypertension Mental health problem Stroke Grandfather Cancer History of heart disease Grandmother Diabetes mellitus Family/Other Hypertension Social History household members: spouse and children Smoking Status: Former smoker alcohol intake: current Meds Home Medications and Allergies Home Medications Medication Instructions Recorded Confirmed Type duloxetine 30 mg capsule,delayed 30 mg PO DAILY 05/04/23 12/13/24 History release prazosin 1 mg capsule 1 mg PO QPM 05/04/23 12/13/24 History hydroxyzine HCl 25 mg tablet 25 mg PO BEDTIME 11/10/24 12/13/24 History lisinopril 10 1 tab PO DAILY #30 tabs 11/10/24 12/13/24 Rx mg-hydrochlorothiazide 12.5 mg tablet Allergies Allergy/AdvReac Type Severity Reaction Status Date / Time Opioids - Morphine Analogues Allergy Intermediate ITCHING Verified 12/13/24 09:50 bupropion AdvReac Mild SEXUAL Verified 12/13/24 09:50 SIDE EFFECTS venlafaxine AdvReac Mild SEXUAL Verified 12/13/24 09:50 SIDE EFFECTS Exam Vital Signs (past 8 hours): - 12/13/24 09:59 Temperature 97.5 F L Pulse Rate 85 Respiratory Rate 16 Blood Pressure 142/81 H Pulse Oximetry 100 Oxygen Delivery Method Room Air Oxygen Delivery Method Room Air Narrative Exam Narrative: Oropharynx free of lesions Chest clear to auscultation percussion Cardiac exam reveals no S3 or murmur Assessment & Plan Assessment & Plan narrative: For screening colonoscopy. Risks, benefits, alternatives have been explained. Time-Based Coding :: [TOTAL MINUTES] spent with patient and on the chart (including review of chart, obtaining history, exam, reviewing outside data, placing orders, documenting exam and treatment plan, and counseling patient) on [DATE]. 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
--- NOTE | 2024-12-13 10:23 | PM.OP.COLON ---
Operative Date/Time/Diagnoses Date of procedure: 12/13/24 Time of procedure: 10:35 Pre-op diagnosis: See indication and findings Post-op diagnosis: same Procedure & Clinicians Study performed: Colonoscopy Same procedure as scheduled: Yes Surgeon: Talib Slater Procedure Notes Procedure in detail: After informed consent was obtained the patient was placed in left lateral decubitus position. The video colonoscope was introduced the rectum slowly advanced cecum. Preparation was good. On slow withdrawal mucosa was carefully examined. The scope was removed. The patient tolerated procedure well. Blood loss none Complications none Sedation mac Findings 1. Normal colonoscopy to cecum other than mild left-sided diverticula Patient should have follow-up colonoscopy in 10 years
[2024-12-13 10:36] VITALS: BP 122/79; PULSE 76; RESP 14; TEMP 36.2; O2SAT 98
[2024-12-13 10:41] VITALS: BP 119/62; PULSE 75; RESP 12; O2SAT 99
[2024-12-13 10:50] VITALS: BP 130/75; PULSE 58; RESP 14; O2SAT 99
[2024-12-13 11:00] VITALS: BP 132/75; PULSE 68; RESP 14; TEMP 36.7; O2SAT 98
== END 2024-12-13 11:03 | disposition home or self-care (01) ==
PROVIDERS: PCP Family Medicine; Referring Provider Internal Medicine Gastroenterology; Visit Provider Internal Medicine Gastroenterology
PROC: 0DJD8ZZ Inspection of Lower Intestinal Tract, Via Natural or Artificial Opening Endoscopic (ICD-10-PCS; CPT 45378; principal; 2024-12-13 10:30)
DX: Z12.11 Encounter for screening for malignant neoplasm of colon (principal); Z87.891 Personal history of nicotine dependence; K57.30 Diverticulosis of large intestine without perforation or abscess without bleeding
CPT/HCPCS: 45378; J2704

== ENCOUNTER → 2025-02-23 12:13 | Outpatient (CLI) | payer OTHER, SELFPAY ==
[2022-06-25 10:07] VITALS: BMI 32.8
[2025-02-23 13:32] LABS: Alanine Aminotransferase 27 IU/L (<35); Albumin 4.4 g/dL (3.5-5.0); Albumin Globulin Ratio 1.8 (1.0-2.8); Alkaline Phosphatase 73 U/L (38-126); Blood Urea Nitrogen 12 mg/dL (7-17); Calcium 9.6 mg/dL (8.4-10.2); Carbon Dioxide 30 mmol/L (22-32); Chloride 99 mmol/L (98-107); Estimated Glomerular Filt Rate > 60 mL/min (>60); Globulin 2.5 g/dL (1.7-4.1); Glucose 95 mg/dL (70-99); HEMOLYSIS < 15 (0-50); Potassium 4.1 mmol/L (3.4-5.1); Sodium 135 mmol/L (137-145); Total Protein 6.9 g/dL (6.3-8.2)
== END ==
PROVIDERS: PCP Family Medicine; Referring Provider Family Medicine; Visit Provider Family Medicine
DX: R79.89 Other specified abnormal findings of blood chemistry (principal)
CPT/HCPCS: 36415; 80053